=== PATIENT | male | born 1950 | race Caucasian/White ===

== ENCOUNTER → 2019-07-28 | Outpatient (CLI) | payer MEDICARE ==
--- NOTE | 2019-07-28 10:20 | Diagnostic Imaging Report ---
PROCEDURE: MRI lumbar spine. TECHNIQUE: Multiplanar, multisequence MRI of the lumbar spine was performed without contrast. INDICATION: Back pain. FINDINGS: The alignment of the lumbar spine is grossly normal. 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 There is no spondylolysis or spondylolisthesis. No fractures are identified. Conus medullaris seen at L1 is normal in appearance. At T12-L1 there is mild annular bulging and mild facet disease. There is no significant spinal or neural foraminal encroachment. At L1-L2 there is broad-based annular bulging, facet disease and thickening of the ligamentum flavum. There is mild central spinal stenosis. There is some slight encroachment upon the lateral recesses bilaterally. There is minimal neural foraminal encroachment. At L2-L3 there is broad-based annular bulging, facet disease and thickening of the ligamentum flavum. There is moderate spinal stenosis with encroachment upon the lateral recesses bilaterally. There is moderate bilateral neural foraminal encroachment. At L3-L4 there is broad-based annular bulging, facet disease and thickening of the ligamentum flavum. There is moderate spinal stenosis with encroachment upon the lateral recesses bilaterally. There is moderate bilateral neural foraminal encroachment. At L4-L5 there is broad-based annular bulging, facet disease and thickening of the ligamentum flavum. There is snoh-dd-slgwnhih spinal stenosis with encroachment upon the lateral recesses bilaterally as well as [id number] bilateral neural foraminal encroachment. At L5-S1 there is a left paramedian disc extrusion. This results in effacement of the ventral thecal sac and marked mass effect on the left lateral recess and exiting nerve root. There is also moderate left neural foraminal encroachment. There is minimal right neural foraminal encroachment. The abdominal aorta is nonaneurysmal. Kidneys are unremarkable. IMPRESSION: Diffuse lumbar spondylosis and multilevel degenerative disc disease as detailed above. Dictated by: Dictated on workstation # [id number]
== END ==
LOC: RAD 09:25
PROVIDERS: ATTEND Nurse Practitioner Community Health
DX: M47.816 Spondylosis without myelopathy or radiculopathy, lumbar region (principal); M48.061 Spinal stenosis, lumbar region without neurogenic claudication; M51.17 Intervertebral disc disorders with radiculopathy, lumbosacral region; M51.16 Intervertebral disc disorders with radiculopathy, lumbar region
CPT/HCPCS: 72148

== ENCOUNTER 2021-06-12 05:32 | Outpatient (CLI) | payer MEDICARE ==
[~2021-06-12] VITALS: Ht 185.5 cm; Wt 83.0 kg
[2021-06-12] MEDS ORDERED: ASPI-999 PO (15:20)
== END 2021-06-13 08:14 ==
LOC: PREOP 05:32
PROVIDERS: ATTEND Surgery
DX: Z01.818 Encounter for other preprocedural examination (principal)

== ENCOUNTER 2021-06-19 08:27 | Day surgery (SDC) | payer MEDICARE ==
[~2021-06-19] VITALS: Ht 185.5 cm; Wt 83.0 kg
[~2021-06-19 08:27] MED LIST: ASPI-999 PO
[2021-06-19] MEDS ORDERED: LACTATED RINGERS 1,000 ML IV STA (08:30)
[2021-06-19] MEDS ORDERED: LACTATED RINGERS 1,000 ML IV ONE (08:31)
[2021-06-19 08:45] VITALS: BP 126/86
[2021-06-19] MEDS ORDERED: PROPOFOL INJECTION 50 ML IV ONE (08:54)
[2021-06-19] MEDS ORDERED: proPOfol 200 MG/20 ML (DIPRIVAN) VIAL IV ONE (09:46)
--- NOTE | 2021-06-19 10:17 | Progress Note-Post Operative ---
Post-Operative Progess Note Surgeon (s)/Process Equipment Operator (s) Surgeon JOSE CRISTOBAL DO Process Equipment Operator: na Pre-Operative Diagnosis screening colonoscopy Post-Operative Diagnosis diverticulosis Procedure & Operative Findings Date of Procedure 06/19/21 Procedure Performed/Findings colonoscopy Anesthesia Type per window sash installer Estimated Blood Loss Estimated blood loss (mL): none Specimens/Packing Specimens Removed none JOSE CRISTOBAL DO Jun 19, 2021 10:16
--- NOTE | 2021-06-19 10:18 | Discharge Inst-Simple/Standard ---
Discharge Inst-Standard Patient Instructions/Follow Up Plan of Care/Instructions/FU: Jaren 10 years repeat colonoscopy. Any issues before that be seen at that time. Activity as Tolerated: Yes Discharge Diet: Regular Diet (high fiber) JOSE CRISTOBAL DO Jun 19, 2021 10:18
[2021-06-19 10:19] VITALS: BP 122/75
[2021-06-19 10:24] VITALS: BP 134/76
[2021-06-19 10:25] VITALS: BP 121/69
--- NOTE | 2021-06-19 10:37 | Anesthesia-General Post-Op ---
MAC Patient Condition Mental Status/LOC: Same as Preop Cardiovascular: Satisfactory Nausea/Vomiting: Absent Respiratory: Satisfactory Pain: Controlled Complications: Absent Post Op Complications Complications None Follow Up Care/Instructions Patient Instructions None needed. Anesthesiology Discharge Order Discharge Order Patient is doing well, no complaints, stable vital signs, no apparent adverse anesthesia problems. No complications reported per nursing. LANDON SOLIS CRNA Jun 19, 2021 10:37
[2021-06-19 10:55] VITALS: BP 122/72
[2021-06-19 11:00] VITALS: BP 122/72
--- NOTE | 2021-06-19 16:37 | OPERATIVE REPORT ---
DATE OF SERVICE: 06/19/2021 PREOPERATIVE DIAGNOSIS: Screening colonoscopy. POSTOPERATIVE DIAGNOSIS: Diverticulosis. PROCEDURE PERFORMED: Colonoscopy. SURGEON: Jose Eastman DO. ANESTHESIA: Per EROSION CONTROL COORDINATOR. ESTIMATED BLOOD LOSS: None. COMPLICATIONS: None. INDICATIONS FOR PROCEDURE: The patient is a 71-year-old male needing screening colonoscopy. He understands risks and benefits of procedure and wished to proceed with procedure. Consent was signed in the chart. DESCRIPTION OF PROCEDURE: The patient was taken to the endoscopy suite and placed in a left lateral recumbent position. Timeout was performed. Digital rectal exam was performed. There were no palpable polyps, masses or ulcerations. Scope was inserted in the rectum and advanced all the way to cecum with minimal difficulty. Prep was adequate. Scope was then slowly retracted back. No polyps, masses or ulcerations in the cecum, ascending, transverse, descending and sigmoid colon. In the sigmoid colon, some diverticulosis was present. Scope was then slowly retracted back to the rectum, where it was also retroflexed noting no other pathology. Scope was returned to its normal position, slowly withdrawn until completely removed. The patient tolerated the procedure well without any complications and taken to recovery room in a stable condition. RECOMMENDATIONS: The patient will need repeat colonoscopy in 10 years if benefits outweigh the risk, but due to age, likely does not need another one unless he is symptomatic. The patient will follow up on as-needed basis. Job ID: [id number] DocumentID: [id number] Dictated Date: 06/19/2021 10:20:35 Golf Course Superintendent Date: 06/19/2021 16:36:59 Dictated By: JOSE EASTMAN DO
== END 2021-06-19 11:00 | disposition home or self-care (01) ==
LOC: ENDO 08:27
PROVIDERS: ATTEND Surgery
DX: Z12.11 Encounter for screening for malignant neoplasm of colon (principal); K57.30 Diverticulosis of large intestine without perforation or abscess without bleeding; Z79.82 Long term (current) use of aspirin

== ENCOUNTER → 2021-11-02 | Outpatient (CLI) | payer MEDICARE ==
[2021-11-02 10:56] VITALS: BP 132/94
--- NOTE | 2021-11-02 11:47 | Cardiology Stress Test Report ---
Stress Test Report Date of Procedure/Referring: Date of Procedure: Nov 02, 2021 PCP Abelino Mckinley MD Admitting Physician Center/[facility] Indications: CP Baseline Heart Rate: 62 Baseline Blood Pressure: Blood Pressure Systolic: 132 Blood Pressure Diastolic: 94 Baseline EKG: Baseline EKG: NSR Summary/Conclusion: Summary: In summary, the patient started exercising with a baseline heart rate, blood pressure and EKG mentioned above Patient was able to exercise for a total of 10 minutes on Walt protocol, METs 11.7 Maximum heart rate 144 Maximum blood pressure 220/71 Stress EKG, Minimal nondiagnostic changes Recovery EKG , Return to baseline Conclusion: 1. Good exercise tolerance for a total of 10 minutes on Walt protocol, 11.7 METs, achieving 96 percent of maximum expected heart rate 2. Minimal nondiagnostic EKG changes with exercise returned to baseline during recovery 3. No arrhythmia was noted ABELINO MCKINLEY MD Nov 02, 2021 11:47
== END ==
LOC: CARD 09:50
PROVIDERS: ATTEND Internal Medicine Cardiovascular Disease
DX: I34.0 Nonrheumatic mitral (valve) insufficiency (principal); I11.9 Hypertensive heart disease without heart failure; I25.10 Atherosclerotic heart disease of native coronary artery without angina pectoris; I49.9 Cardiac arrhythmia, unspecified
CPT/HCPCS: 93017; 93225; 93226; 93306